=== PATIENT | female | born 1950 | race Caucasian/White ===

== ENCOUNTER → 2018-11-10 13:43 | Outpatient (CLI) | payer MEDICARE, OTHER, SELFPAY ==
--- NOTE | 2018-11-10 14:20 | RAD_ITS ---
STUDY: BARIUM ENEMA. REASON FOR EXAM: Female, 68 years old. Incomplete colonoscopy. FLUOROSCOPY TIME (if supplied): (0:40) minutes/seconds. 14 images were obtained. 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 From this, 80 catheter was placed in the rectum. Barium was introduced retrograde with filling of the entire colon. COMPARISON: None. FINDINGS: There is evidence of sigmoid diverticulosis with no radiographic evidence of diverticulitis. No intraluminal filling defect or obstruction is seen. RAD/Barium Enema No Air Cont IMPRESSION: Sigmoid diverticulosis. Electronically Signed: Omar Dietrich, at 15:23 EST , Service support ,
== END ==
PROVIDERS: Family Provider Family Medicine; PCP Family Medicine; Referring Provider Surgery; Visit Provider Surgery
DX: R19.7 Diarrhea, unspecified (principal)
CPT/HCPCS: 74270